=== PATIENT | female | born 1975 | race Caucasian/White ===

== ENCOUNTER 2019-10-03 18:44 | Emergency (ER) | payer OTHER ==
[2019-10-03 18:55] VITALS: BP 133/91; PULSE 88; RESP 16; TEMP 99.1
[2019-10-03] MEDS ORDERED: diphenhydrAMINE 50 MG CAP PO STA (19:15)
[2019-10-03] MEDS ORDERED: methylPREDNISolone SOD SUCCI 125 MG/2 ML VIAL IM ONE (19:15)
--- NOTE | 2019-10-03 19:21 | ED ---
General Adult HPI - General Chief complaint: Skin/Abscess/Foreign Body Stated complaint: Allergic Reaction Time Seen by Provider: 10/03/19 19:02 Source: patient, RN notes reviewed Mode of arrival: ambulatory Limitations: no limitations - History of Present Illness Initial comments: 43-year-old female presents to the emergency department for a chief complaint of rash. Patient states yesterday she started to get hives on her arms legs and back. Patient states that she thinks it may have been from that feeding a goat with hay which she started doing about 4 days ago. Patient denies any swelling of the lips tongue or throat. Patient denies starting any new medications. Denies any new detergents or soaps. Patient states that the rash is very itchy. She has tried Benadryl which helps for short time but it returns. Patient denies any chance of .Patient has no other complaints at this time including shortness of breath, chest pain, abdominal pain, nausea or vomiting, headache, or visual changes. - Related Data Previous Rx's Medication Instructions Recorded predniSONE 50 mg PO DAILY #5 tablet 10/03/19 Allergies Allergy/AdvReac Type Severity Reaction Status Date / Time acetaminophen [From Vicodin] Allergy Itching Verified 10/03/19 18:52 bee venom protein (honey bee) Allergy Anaphylaxis Verified 10/03/19 18:52 hydrocodone [From Vicodin] Allergy Itching Verified 10/03/19 18:52 Review of Systems ROS Statement: Those systems with pertinent positive or pertinent negative responses have been documented in the HPI. ROS Other: All systems not noted in ROS Statement are negative. Past Medical History Past Medical History: No Reported History History of Any Multi-Drug Resistant Organisms: None Reported Past Surgical History: Appendectomy, Back Surgery, Breast Surgery, Orthopedic Surgery Past Psychological History: No Psychological Hx Reported Smoking Status: Former smoker Past Alcohol Use History: Occasional Past Drug Use History: None Reported General Exam Limitations: no limitations General appearance: alert, in no apparent distress Head exam: Present: atraumatic, normocephalic, normal inspection Eye exam: Present: normal appearance, PERRL, EOMI. Absent: scleral icterus, conjunctival injection, periorbital swelling ENT exam: Present: normal exam, normal oropharynx (No evidence of angioedema), mucous membranes moist, TM's normal bilaterally, normal external ear exam Neck exam: Present: normal inspection. Absent: tenderness, meningismus, lymphadenopathy Respiratory exam: Present: normal lung sounds bilaterally. Absent: respiratory distress, wheezes, rales, rhonchi, stridor Cardiovascular Exam: Present: regular rate, normal rhythm, normal heart sounds. Absent: systolic murmur, diastolic murmur, rubs, gallop, clicks GI/Abdominal exam: Present: soft, normal bowel sounds. Absent: distended, tenderness, guarding, rebound, rigid Neurological exam: Present: alert Skin exam: Present: rash, urticaria (Patient has urticaria noted to the extremities as well as her back.) Course Vital Signs 10/03/19 18:52 Temperature 99.1 F Pulse Rate 88 Respiratory 16 Rate Blood Pressure 133/91 O2 Sat by Pulse 98 Oximetry Medical Decision Making - Medical Decision Making HPI and physical exam as documented. Urticaria noted to extremities and back. Negative Nikolsky sign. No new medications. No angioedema. No shortness of breath or chest pain. Patient likely experiencing ALLERGIC reaction to hay although discussed that this is only a possibility and is not definitive. Recommended steroid and Benadryl. Recommend she follow up with her doctor which she agrees with. She will return here for worsening symptoms which were discussed in depth with her including worsening rash or swelling of lips tongue or throat. Disposition Clinical Impression: Rash Disposition: HOME SELF-CARE Condition: Good Instructions (If sedation given, give patient instructions): Acute Rash (ED) Additional Instructions: Please take benadryl every 6 hours for itching and rash. Take steroid as directed starting tomorrow. Follow up with your doctor. If you have any worsening symptoms return to the ER. Rx at: [facility] [place] [address] Prescriptions: predniSONE 50 mg PO DAILY #5 tablet Is patient prescribed a controlled substance at d/c from ED?: No Referrals: Glory Jameson PAC [Primary Care Provider] - 1-2 days Time of Disposition: 19:21
== END 2019-10-03 19:40 | disposition home or self-care (01) ==
LOC: EC 18:44
DX: R21 Rash and other nonspecific skin eruption (principal); Z88.5 Allergy status to narcotic agent; Z88.6 Allergy status to analgesic agent; Z91.030 Bee allergy status; Z87.891 Personal history of nicotine dependence
CPT/HCPCS: 99282; 96372; J2930